=== PATIENT | male | born 1950 | race Caucasian/White ===

== ENCOUNTER 2016-05-09 13:14 | Emergency (ER) | payer OTHER ==
[~2016-05-09] VITALS: Ht 172.7 cm; Wt 77.1 kg
[~2016-05-09 13:14] MED LIST: AMOXICOT500 MG PO; ASPIRIN CHILDRE81 MG PO; ASPIRIN EC325 MG PO; ASPIRIN EC81 M1 PO; AUGMENTIN 875875 MG PO; HUMALOG 100U100 U/ML SC; LANTUS SOL100 UNIT/1 SC; LISINOPRIL2.5 MG PO; Mucinex PO; OMEGA-3 FISH O1 EAC4 PO; PREDNISONE10 MG PO; Robitussin PO; TOPROL XL 25MG25 MG PO; ZETIA10 M1 PO; ZITHROMAX Z-PA250 M1 PO; ZOCOR80 M1 PO
[2016-05-09 13:39] LABS: ABSOLUTE BASOPHIL COUNT 0 /CUMM (0.0-0.2); ABSOLUTE EOSINOPHIL COUNT 0.1 /CUMM (0.0-0.7); ABSOLUTE GRANULOCYTE CT 4.2 /CUMM (1.4-6.5); ABSOLUTE MONOCYTE COUNT 0.3 /CUMM (0.10-0.60); BASOPHIL % 0.3 % (0.0-2.0); EOSINOPHIL % 1.6 % (0-5); GRANULOCYTE % 75.8 % (42.2-75.2); HEMATOCRIT 41.2 % (42-52); MEAN CORPUSCULAR HGB 29.2 PG (27.0-31.0); MEAN CORPUSCULAR HGB CONC 33.7 G/DL (33.0-37.0); MEAN CORPUSCULAR VOLUME 86.8 FL (80.0-94.0); MEAN PLATELET VOLUME 11.3 FL (7.4-10.4); PLATELET COUNT 130 /CUMM (130-400); RBC DISTRIBUTION WIDTH 13.6 % (11.5-14.5); RED BLOOD CELL CT 4.75 /CUMM (4.70-6.10); WHITE BLOOD CELL COUNT 5.6 /CUMM (4.8-10.8)
[2016-05-09] MEDS ORDERED: HUMALOG100 UNIT/1 (14:00)
--- NOTE | 2016-05-09 14:09 | ED CARDIAC/CP/PALPITATIONS ---
History of Present Illness General Chief Complaint: Chest Pain Stated Complaint: CHEST PAIN Source: patient, old records Exam Limitations: no limitations Vital Signs & Intake/Output Vital Signs & Intake/Output Vital Signs Date Time Temp Pulse Resp B/P Pulse O2 O2 Flow FiO2 Ox Delivery Rate 05/09 1647 98.7 78 16 130/67 96 Room Air 05/09 1325 97 Room Air 05/09 1325 98.0 78 16 147/69 97 Room Air Allergies Coded Allergies: mushroom (Severe, ANAPHYLAXIS 06/14/15) Reconcile Medications Aspirin (Ecotrin) 81 MG ECT 1 TAB PO DAILY HEART/BLOOD (Reported) Ezetimibe (Zetia) 10 MG TAB 1 TAB PO DAILY CHOLESTEROL (Reported) Insulin Glargine,Hum.rec.anlog (Lantus Solostar) 100 UNIT/ML (3 ML) INSULN.PEN 30 UNIT SC QPM DIABETES (Reported) Insulin Lispro (Humalog) (Unknown Strength) CARTRIDGE (Unknown Dose) DIABETES (Reported) OMEGA-3/DHA/EPA/FISH OIL ([place]-3 Fish Oil 1,000 MG Sftg) 1,000 MG SGL 1 CAP PO DAILY SUPPLEMENT (Reported) Simvastatin (Zocor) 80 MG TABLET 1 TAB PO QPM CHOLESTEROL (Reported) Triage Note: BIBA C/C SUBSTERNAL CP THIS MORNING AND RADIATION TO BOTH ARMS. REPORTS EPISODE OF DIAPHORESIS WITH CHEST PAIN. WHEN ASKED TO POINT TO AREA OF PAIN, PT RUBS ABDOMEN, WHICH IS NOTICEABLY DISTENDED AND FIRM. TENDER TO PALPATION ON EXAM. LAST BM TODAY AND NORMAL. HX PR "YEARS AGO" DENIES STENT PLACEMENT OR CABG. ACCUCHECK 336 BY EMS, PT HAD JUST EATEN LUNCH. NORMAL SINUS RATE 80'S ON ARRIVAL. DENIES ANY CHEST PAIN/SOB AT THIS TIME. Triage Nurses Notes Reviewed? yes Onset: Morning Duration: hour(s):, changing over time, gone now, waxing and waning Timing: recent history Quality/Severity: mild, tightness Location: substernal Radiation: no radiation Activities at Onset: rest Prior Chest Pain/Card Workup: cardiac cath, heart attack, stress test Modifying Factors: Improves With: rest. Nitro Today/Relief: no nitro taken today Aspirin Today: no aspirin today Associated Symptoms: diaphoresis, nausea/vomiting HPI: Morning prior to admission patient developed waxing and waning mild to moderate substernal chest pain nonradiating associated with diaphoresis and nausea. It Is different from his cardiac pain in the past. He denies fever chills abdominal pain vomiting diarrhea dysuria rash shortness of breath bleeding. (CORINNE GAITAN MD) Past History Travel History Traveled to [place] past 21 day No Medical History Any Pertinent Medical History? 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 No (CORINNE GAITAN MD) Review of Systems Review of Systems Constitutional: Reports: see HPI, diaphoresis. EENTM: Reports: no symptoms. Respiratory: Reports: no symptoms. Cardiovascular: Reports: see HPI, chest pain. GI: Reports: see HPI, nausea. Genitourinary: Reports: no symptoms. Musculoskeletal: Reports: no symptoms. Skin: Reports: no symptoms. Neurological/Psychological: Reports: no symptoms. Hematologic/Endocrine: Reports: no symptoms. Immunologic/Allergic: Reports: no symptoms. All Other Systems: Reviewed and Negative (CORINNE GAITAN MD) Physical Exam Physical Exam General Appearance: well developed/nourished, alert, awake, anxious, comfortable Head: atraumatic, normal appearance Eyes: Bilateral: normal appearance, PERRL, EOMI. Ears, Nose, Throat: normal pharynx, normal ENT inspection Neck: normal inspection, supple, full range of motion, no midline tenderness Respiratory: normal breath sounds, chest non-tender, no respiratory distress, quiet respiration, lungs clear Cardiovascular: regular rate/rhythm, normal peripheral pulses, norml femoral pulses equa Peripheral Pulses: 4+ carotid (R), 4+ carotid (L) Gastrointestinal: normal bowel sounds, soft, non-tender, no organomegaly Back: normal inspection, normal range of motion Extremities: normal inspection, normal capillary refill, normal range of motion, no edema Neurologic/Psych: no motor/sensory deficits, awake, alert, oriented x 3, normal gait, 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 Skin: intact, normal color, warm/dry Lymphatic: no anterior cervical karlie Core Measures ACS in differential dx? Yes Severe Sepsis Present: No Septic Shock Present: No (KANDY HANSON,CORINNE) Progress Differential Diagnosis: AMI, hyperkalemia, musculoskeletal pain, pneumonia Plan of Care: Orders Procedure Date/time Status Consistent Carbohydrate 3 05/10 B Active Consistent Carbohydrate 3 05/09 D Complete TROPONIN LEVEL 05/09 1635 Complete EKG 05/09 1635 Active Add-on Test (ER Only) 05/09 1408 Active LIPASE 05/09 1332 Complete TROPONIN LEVEL 05/09 1329 Complete COMPREHENSIVE METABOLIC PANEL 05/09 1329 Complete CBC WITHOUT DIFFERENTIAL 05/09 1329 Complete EKG 05/09 1318 Active Laboratory Tests 05/09/16 1630: Troponin I < 0.01 05/09/16 1332: Anion Gap 9, Estimated GFR > 60, BUN/Creatinine Ratio 12.5, Glucose 326 H, Calcium 8.2 L, Total Bilirubin 0.8, AST 15 L, ALT 14 L, Alkaline Phosphatase 98, Troponin I < 0.01, Total Protein 6.2 L, Albumin 3.5, Globulin 2.7, Albumin/ Globulin Ratio 1.3, Lipase 27, CBC w Diff NO MAN DIFF REQ, RBC 4.75, MCV 86.8, MCH 29.2, RDW 13.6, MPV 11.3 H, Gran % 75.8 H, Lymphocytes % 17.4 L, Monocytes % 4.9, Eosinophils % 1.6, Basophils % 0.3, Absolute Granulocytes 4.2, Absolute Lymphocytes 1.0 L, Absolute Monocytes 0.3, Absolute Eosinophils 0.1, Absolute Basophils 0, PUBS MCHC 33.7 Patient signed out to me by Dr. Gaitan. Pending repeat troponin and EKG at 4: 30. Repeat troponin is negative. Patient will follow up outpatient for further evaluation. (LORENZA HANSON,MONIQUE) Diagnostic Imaging: Viewed by Me: Radiology Read. Discussed w/RAD: Radiology Read. CXR Impression: no acute abnormality Initial ED EKG: normal axis, normal intervals, normal p-waves, normal QRS complex, normal sinus rhythm, no ST T wave changes Prior EKG: unchanged Rhythm Strip: normal sinus rhythm Hand-Off Endorsed To: MONIQUE BRITT MD Endorsed Time: 1503 Pending: labs (2nd troponin/ekg) (CORINNE GAITAN MD) Repeat EKG: unchanged (MONIQUE BRITT MD) Departure Departure Condition: Stable Clinical Impression Primary Impression: Chest pain in adult Referrals: RAMONA CHI MD (PCP/Family) Departure Forms: Customer Survey General Discharge Information (CORINNE GAITAN MD) Departure Time of Disposition: 1716 Disposition: HOME OR SELF CARE Additional Instructions: Follow-up with her primary care doctor in the office. Return to the ER for any changing or worsening symptoms. (MONIQUE BRITT MD) Critical Care Note Critical Care Note Critical Care Time: non-applicable (CORINNE GAITAN MD)
--- NOTE | 2016-05-09 14:45 | RADIOLOGY REPORT ---
EXAMINATION: XR PORTABLE CHEST CLINICAL INFORMATION: Chest pain COMPARISON: 09/12/2014 and 06/10/2015. TECHNIQUE: Portable view of the chest was obtained. FINDINGS: No acute findings compared to 06/10/2015. There is no pulmonary consolidation, interstitial edema, pleural effusion or pneumothorax. Cardiac silhouette is mildly enlarged. There is dextroscoliosis of the thoracic spine. IMPRESSION: Stable chest. No acute cardiopulmonary disease compared to 06/10/2015.
[2016-05-09 16:47] VITALS: BP 130/67
== END 2016-05-09 17:40 ==
LOC: ERH 13:14
PROVIDERS: Emergency Medicine
DX: R07.89 Other chest pain (principal)
CPT/HCPCS: 93005; 93010; J3490

== ENCOUNTER 2016-08-18 07:32 | Emergency (ER) | payer OTHER ==
[~2016-08-18] VITALS: Ht 152.4 cm; Wt 77.1 kg
[~2016-08-18 07:32] MED LIST changes: +HUMALOG100 UNIT/1
[2016-08-18] MEDS ORDERED: ATORVASTATIN CA80 M1 PO (08:04)
--- NOTE | 2016-08-18 08:04 | ED NOSE COMPLAINT ---
History of Present Illness General Chief Complaint: Epistaxis/Nasal Foreign Body Stated Complaint: NOSEBLEED Source: patient, old records, EMS Exam Limitations: no limitations Vital Signs & Intake/Output Vital Signs & Intake/Output Vital Signs Date Time Temp Pulse Resp B/P B/P Pulse O2 O2 Flow FiO2 Mean Ox Delivery Rate 08/18 0749 97.4 82 16 144/85 95 Room Air Allergies Coded Allergies: mushroom (Severe, ANAPHYLAXIS 06/14/15) Reconcile Medications Aspirin (Ecotrin*) 81 MG TABLET.DR 1 TAB PO DAILY HEART HEALTH (Reported) Atorvastatin Calcium 80 MG TABLET 1 TAB PO DAILY CHOLESTEROL (Reported) Ezetimibe (Zetia) 10 MG TABLET 1 TAB PO DAILY CHOLESTEROL (Reported) Insulin Glargine,Hum.rec.anlog (Lantus Solostar) 100 UNIT/ML (3 ML) INSULN.PEN 35 UNIT SC QPM DIABETES (Reported) Insulin Lispro (Humalog) (Unknown Strength) CARTRIDGE (Unknown Dose) DIABETES (Reported) [place]-3S/Dha/Epa/Fish Oil ([place]-3 Fish Oil 1,000 MG Sfgl) 300-1,000MG CAPSULE 1 CAP PO DAILY SUPPLEMENT (Reported) Simvastatin (SIMVASTATIN*) 80 MG TABLET 1 TAB PO DAILY CHOLESTEROL (Reported) Triage Note: PT WITH NOSEBLEED THAT STARTED 2 HOURS AGO. PT DENIES BEING ON BLOOD THINNERS. Triage Nurses Notes Reviewed? yes HPI: Patient presents with a nosebleed from his left nostril since this morning. Patient was unable to control bleeding; 911. Patient brought in for evaluation. Patient denies any headache. There is no lightheadedness or blurry vision. There is no pain. There is no chest pain or shortness of breath. No dyspnea on exertion. There is no nausea or vomiting. There is no coughing. Patient takes an aspirin every day. He did not take it this morning. Past History Travel History Traveled to [place] past 21 day No Medical History Any Pertinent Medical History? see below for history Neurological: NONE EENT: NONE Cardiovascular: hypertension, hyperlipidemia, myocardial infarction Respiratory: bronchitis, pneumonia Gastrointestinal: NONE (2005), Treated C.Diff in the past HERNIA REPAIR Hepatic: NONE Renal: NONE Musculoskeletal: SHOULDER SX Psychiatric: NONE Endocrine: diabetes Blood Disorders: NONE Cancer(s): NONE COMPLIANCE SPEC/Reproductive: BPH Other Medical Hx: NONE History of MRSA: No History of VRE: No History of CDIFF: No Surgical History Surgical History: hernia repair-inguinal Psychosocial History Who do you live with [facility] Lives in [facility]isted Living facility What is your primary language [place] Tobacco Use: Never used ETOH Use: denies use Illicit Drug Use: denies illicit drug use Family History Family History, If Any: SISTER FH: diabetes mellitus MOTHER FH: stroke FATHER FH: diabetes mellitus FH: stroke Hx Contributory? No Review of Systems Review of Systems Constitutional: Reports: no symptoms. EENTM: Reports: see HPI, epistaxis. Respiratory: Reports: no symptoms. Cardiovascular: Reports: no symptoms. GI: Reports: no symptoms. Neurological/Psychological: Reports: no symptoms. Immunologic/Allergic: Reports: no symptoms. Physical Exam Physical Exam General Appearance: well developed/nourished, alert, awake, anxious, mild distress Head: atraumatic Eyes: Bilateral: PERRL, abnormal EOM. Ears: Bilateral: Tympanic normal. Nose: dried blood Mouth/Throat: normal mouth inspection, pharynx normal Neck: normal inspection, supple, full range of motion Cardiovascular/Respiratory: normal breath sounds, normal peripheral pulses, regular rate/rhythm, no respiratory distress Neurologic/Psych: no motor/sensory deficits, awake, alert, oriented x 3, normal gait, normal mood/affect Progress Differential Diagnoses I considered the following diagnoses in my evaluation of the patient: [Epistaxis ] Plan of Care: Rhino Rocket nasal packing Initial ED EKG: none Departure Departure Disposition: HOME OR SELF CARE Condition: Stable Clinical Impression Primary Impression: Anterior epistaxis Referrals: TRACY HANSON,FAVIAN CHI MD,RAMONA (PCP/Family) Additional Instructions: KEEP PACKING IN FOLLOW UP WITH DR. MOLINA EARLY THIS WEEK RETURN IF YOU BLEED AGAIN OR FOR ANY CONCERNS Departure Forms: Customer Survey General Discharge Information Procedures Epistaxis/Nasal Foreign Body Status: no bleeding Clots Cleared Nasal Passage: by patient blowing Inspected With: otoscope Bleeding Site: ANTERIOR SEPTUM Observe for Bleeding: DRIED BLOOD BUT VERY SLIGHT OOZE M\NOTED Nasal Rocket: Left: Inserted Anterior.
[2016-08-18 08:48] VITALS: BP 132/80
== END 2016-08-18 08:50 ==
LOC: ERH 07:32
DX: R04.0 Epistaxis (principal)